=== PATIENT | female | born 1945 | race Caucasian/White ===

== ENCOUNTER 2024-04-24 11:01 | Inpatient (IN) ==
[2024-04-24] MEDS: Ondansetron 4 mg VIAL 2 MG/ML 2 ml VIAL IV ONE (12:09)
[2024-04-24] MEDS: Lactated Ringers 1000 ml BAG 1,000 ML IV ONE (12:10)
[2024-04-24 12:20] LABS: ABS Lymphocytes 1.6 10^3/uL (1.0-4.8); ABS Monocytes 0.4 10^3/uL (0.0-0.9); ABS Neutrophils 5.4 10^3/uL (1.5-7.6); ABS Nucleated RBC 0.01 10^3/ul; Eosinophil % 0.3 %; Hematocrit 44.2 % (35-45); Hemoglobin 15.3 g/dL (11.5-14.3); Lymphocyte % 21.7 %; Mean Corpuscular Hgb Conc 34.6 g/dL (31-36); Mean Corpuscular Volume 86.6 fL (80-97); Mean Platelet Volume 6.4 fL (7.5-11.2); Nucleated Red Blood Cells % 0.1 %/100WBC (0.0-0.8); Platelet Count 453 10^3/uL (150-450); Red Cell Distribution Width 13.2 % (12-17); White Blood Count 7.5 10^3/uL (3.8-11.8)
[2024-04-24 12:41] LABS: Albumin 4.3 g/dL (3.2-5.2); Albumin/Globulin Ratio 2.3 (1-3); Calcium 10.1 mg/dL (8.6-10.3); Creatinine, Serum 0.46 mg/dL (0.51-0.95); Globulin 1.9 g/dL (2-4); Magnesium 1.5 mg/dL (1.9-2.7); Total Protein 6.2 g/dL (6.4-8.9); eGFR CKD-EPI 98.5 (>60)
[2024-04-24 12:52] LABS: TSH Ultra Thyroid Stim Horm 2.57 mcIU/mL (0.34-5.60)
[2024-04-24 13:40] LABS: Osmolality Serum 231 mOsm/kg (275-295)
[2024-04-24 14:03] LABS: Urine Appearance Turbid; Urine Bilirubin Negative (Negative); Urine Blood Negative (Negative); Urine Color Light-Yellow; Urine Glucose Negative (Negative); Urine Ketones 1+ (Negative); Urine Nitrite Negative (Negative); Urine Protein Trace (Negative); Urine Specific Gravity 1.011 (1.002-1.030); Urine Urobilinogen Negative (Negative); Urine pH 7.5 (5.0-8.0)
[2024-04-24 14:12] LABS: Urine Osmo 396 mOsm/kg (150-1150)
[2024-04-24 14:17] LABS: Anion Gap 7 mmol/L (2-16); Blood Urea Nitrogen 13 mg/dL (6-24); CO2 Carbon Dioxide 24 mmol/L (22-32); Calcium 9.5 mg/dL (8.6-10.3); Chloride 77 mmol/L (101-111); Creatinine, Serum 0.46 mg/dL (0.51-0.95); Glucose 107 mg/dL (70-100); Sodium 108 mmol/L (135-145); eGFR CKD-EPI 98.5 (>60)
[2024-04-24] MEDS: Tetan/Diph/Pertus SYR(Tdap) 0.5 ML SYR(BOOSTRIX) use SYR contains LATEX IM ONE (14:35)
[2024-04-24] MEDS ORDERED: Ondansetron 4 mg VIAL 2 MG/ML 2 ml VIAL IV PRN (15:33)
[2024-04-24] MEDS: Magnesium Sulfate 2 gm BAG 2 GM/50 ML BAG IVPB ONE (17:51)
[2024-04-24] MEDS: Magnesium Sulfate IV 1GM/100ML 1 GM/100 ML BAG IV ONE (19:00)
[2024-04-24 19:45] LABS: Calcium 9.6 mg/dL (8.6-10.3); Creatinine, Serum 0.42 mg/dL (0.51-0.95); Potassium 3.8 mmol/L (3.5-5.0); eGFR CKD-EPI 100.7 (>60)
[2024-04-24] MEDS: Enoxaparin 40 MG/0.4 ML SYR SUBCUT SCH (20:11)
[2024-04-24] MEDS: Sodium Chloride 3% HYPERTONIC 150 ML IV ONE (20:16)
[2024-04-25 01:45] LABS: Anion Gap 6 mmol/L (2-16); Blood Urea Nitrogen 10 mg/dL (6-24); CO2 Carbon Dioxide 20 mmol/L (22-32); Calcium 9.2 mg/dL (8.6-10.3); Chloride 77 mmol/L (101-111); Glucose 95 mg/dL (70-100); Sodium 103 mmol/L (135-145); eGFR CKD-EPI 96.5 (>60)
[2024-04-25 06:35] LABS: ABS Lymphocytes 1.5 10^3/uL (1.0-4.8); ABS Monocytes 0.5 10^3/uL (0.0-0.9); ABS Neutrophils 4.6 10^3/uL (1.5-7.6); Eosinophil % 0.3 %; Hematocrit 43.2 % (35-45); Hemoglobin 15.7 g/dL (11.5-14.3); Lymphocyte % 22.7 %; Mean Corpuscular Hemoglobin 30.9 pg (27-33); Mean Corpuscular Hgb Conc 36.2 g/dL (31-36); Mean Corpuscular Volume 85.2 fL (80-97); Mean Platelet Volume 6.6 fL (7.5-11.2); Nucleated Red Blood Cells % 0.1 %/100WBC (0.0-0.8); Platelet Count 396 10^3/uL (150-450); Red Blood Count 5.08 10^6/uL (3.63-4.92); Red Cell Distribution Width 13.5 % (12-17); White Blood Count 6.6 10^3/uL (3.8-11.8)
[2024-04-25 07:22] LABS: Calcium 9.4 mg/dL (8.6-10.3); Creatinine, Serum 0.45 mg/dL (0.51-0.95); Magnesium 1.8 mg/dL (1.9-2.7); Phosphorus 2.7 mg/dL (2.5-5.0); Potassium 3.4 mmol/L (3.5-5.0)
[2024-04-25] MEDS: Magnesium Sulfate 2 gm BAG 2 GM/50 ML BAG IVPB ONE (08:12)
[2024-04-25] MEDS: KCL 20 MEQ/100 ML IVPREMIX 20 MEQ/100 ML BAG IV SCH (08:14)
[2024-04-25 09:11] LABS: Urine Appearance Clear; Urine Bilirubin Negative (Negative); Urine Blood Negative (Negative); Urine Color Light-Yellow; Urine Glucose Negative (Negative); Urine Ketones 2+ (Negative); Urine Nitrite Negative (Negative); Urine Protein Trace (Negative); Urine Specific Gravity 1.013 (1.002-1.030); Urine Urobilinogen Negative (Negative)
[2024-04-25 11:18] LABS: Calcium 9.4 mg/dL (8.6-10.3); Creatinine, Serum 0.43 mg/dL (0.51-0.95); Potassium 3.8 mmol/L (3.5-5.0); eGFR CKD-EPI 100.1 (>60)
[2024-04-25 15:28] LABS: Calcium 9.7 mg/dL (8.6-10.3); Creatinine, Serum 0.37 mg/dL (0.51-0.95); Potassium 4.1 mmol/L (3.5-5.0); eGFR CKD-EPI 103.8 (>60)
[2024-04-25 19:10] LABS: Calcium 9.8 mg/dL (8.6-10.3); Creatinine, Serum 0.39 mg/dL (0.51-0.95); Potassium 3.8 mmol/L (3.5-5.0); eGFR CKD-EPI 102.5 (>60)
[2024-04-25 23:30] LABS: Calcium 9.9 mg/dL (8.6-10.3); Creatinine, Serum 0.38 mg/dL (0.51-0.95); Potassium 3.8 mmol/L (3.5-5.0); eGFR CKD-EPI 103.1 (>60)
[2024-04-26 03:12] LABS: Creatinine, Serum 0.48 mg/dL (0.51-0.95); Potassium 3.9 mmol/L (3.5-5.0); eGFR CKD-EPI 97.5 (>60)
[2024-04-26 05:51] LABS: ABS Lymphocytes 3.1 10^3/uL (1.0-4.8); ABS Monocytes 0.7 10^3/uL (0.0-0.9); ABS Nucleated RBC 0.09 10^3/ul; Eosinophil % 0.4 %; Hematocrit 47.4 % (35-45); Hemoglobin 16.7 g/dL (11.5-14.3); Lymphocyte % 35.2 %; Mean Corpuscular Hemoglobin 30.1 pg (27-33); Mean Corpuscular Hgb Conc 35.2 g/dL (31-36); Mean Corpuscular Volume 85.3 fL (80-97); Mean Platelet Volume 6.4 fL (7.5-11.2); Platelet Count 429 10^3/uL (150-450); Red Blood Count 5.56 10^6/uL (3.63-4.92); Red Cell Distribution Width 13.3 % (12-17); White Blood Count 8.8 10^3/uL (3.8-11.8)
[2024-04-26 06:43] LABS: Calcium 10.3 mg/dL (8.6-10.3); Creatinine, Serum 0.53 mg/dL (0.51-0.95); Magnesium 1.8 mg/dL (1.9-2.7); eGFR CKD-EPI 95.2 (>60)
[2024-04-26 11:16] LABS: Calcium 10.4 mg/dL (8.6-10.3); Creatinine, Serum 0.45 mg/dL (0.51-0.95); Potassium 3.5 mmol/L (3.5-5.0)
[2024-04-26 15:49] LABS: Creatinine, Serum 0.6 mg/dL (0.51-0.95); Potassium 3.7 mmol/L (3.5-5.0); eGFR CKD-EPI 92.4 (>60)
[2024-04-26 18:49] LABS: Anion Gap 6 mmol/L (2-16); Blood Urea Nitrogen 26 mg/dL (6-24); CO2 Carbon Dioxide 25 mmol/L (22-32); Calcium 10.1 mg/dL (8.6-10.3); Chloride 83 mmol/L (101-111); Creatinine, Serum 0.69 mg/dL (0.51-0.95); Glucose 120 mg/dL (70-100); Sodium 114 mmol/L (135-145); eGFR CKD-EPI 89.3 (>60)
[2024-04-27 02:51] LABS: Calcium 9.9 mg/dL (8.6-10.3); Creatinine, Serum 0.67 mg/dL (0.51-0.95); Potassium 4.2 mmol/L (3.5-5.0)
[2024-04-27 06:20] LABS: ABS Basophils 0.1 10^3/uL (0.0-0.1); ABS Lymphocytes 2.2 10^3/uL (1.0-4.8); ABS Monocytes 0.8 10^3/uL (0.0-0.9); ABS Neutrophils 4.5 10^3/uL (1.5-7.6); ABS Nucleated RBC 0.01 10^3/ul; Eosinophil % 0.5 %; Hematocrit 41.6 % (35-45); Hemoglobin 14.7 g/dL (11.5-14.3); Lymphocyte % 29.6 %; Mean Corpuscular Hemoglobin 30.2 pg (27-33); Mean Corpuscular Hgb Conc 35.4 g/dL (31-36); Mean Corpuscular Volume 85.5 fL (80-97); Mean Platelet Volume 6.6 fL (7.5-11.2); Nucleated Red Blood Cells % 0.2 %/100WBC (0.0-0.8); Platelet Count 361 10^3/uL (150-450); Red Blood Count 4.87 10^6/uL (3.63-4.92); Red Cell Distribution Width 13.6 % (12-17); White Blood Count 7.6 10^3/uL (3.8-11.8)
[2024-04-27 07:39] LABS: Calcium 9.7 mg/dL (8.6-10.3); Creatinine, Serum 0.54 mg/dL (0.51-0.95); Magnesium 1.7 mg/dL (1.9-2.7); Potassium 4.1 mmol/L (3.5-5.0); eGFR CKD-EPI 94.8 (>60)
[2024-04-27 11:21] LABS: Urine Osmo 561 mOsm/kg (150-1150)
[2024-04-27 11:23] LABS: Calcium 9.8 mg/dL (8.6-10.3); Creatinine, Serum 0.69 mg/dL (0.51-0.95); Potassium 4.1 mmol/L (3.5-5.0); eGFR CKD-EPI 89.3 (>60)
[2024-04-27] MEDS: Magnesium Sulfate 2 gm BAG 2 GM/50 ML BAG IVPB ONE (12:02)
[2024-04-27 12:08] LABS: Osmolality Serum 264 mOsm/kg (275-295)
[2024-04-27] MEDS: Carboxymethylcellulose/Glyceri 10 ML OPHTH.GEL lubricant eye gel BOTH EYES PRN (12:53)
[2024-04-27] MEDS: Magnesium Sulfate IV 1GM/100ML 1 GM/100 ML BAG IV ONE (13:50)
[2024-04-27] MEDS: Senna TAB 8.6 mg TAB PO PRN (14:34)
[2024-04-27 16:00] LABS: Calcium 9.7 mg/dL (8.6-10.3); Creatinine, Serum 0.74 mg/dL (0.51-0.95); eGFR CKD-EPI 83.3 (>60)
[2024-04-27] MEDS: Benzocaine/Menthol LOZ PO PRN (17:47)
[2024-04-27 18:42] LABS: Calcium 9.5 mg/dL (8.6-10.3); Creatinine, Serum 0.62 mg/dL (0.51-0.95); Potassium 4.2 mmol/L (3.5-5.0); eGFR CKD-EPI 91.7 (>60)
[2024-04-27] MEDS ORDERED: Carboxymethylcellulose/Glyceri 10 ML OPHTH.GEL lubricant eye gel BOTH EYES SCH (21:00)
[2024-04-28 01:07] LABS: Calcium 9.8 mg/dL (8.6-10.3); Creatinine, Serum 0.51 mg/dL (0.51-0.95); Potassium 4.5 mmol/L (3.5-5.0); eGFR CKD-EPI 96.1 (>60)
[2024-04-28 05:48] LABS: ABS Eosinophils 0.1 10^3/uL (0.0-0.5); ABS Lymphocytes 1.8 10^3/uL (1.0-4.8); ABS Monocytes 0.7 10^3/uL (0.0-0.9); ABS Neutrophils 3.6 10^3/uL (1.5-7.6); Eosinophil % 1.2 %; Hematocrit 40.2 % (35-45); Hemoglobin 14.1 g/dL (11.5-14.3); Lymphocyte % 28.9 %; Mean Corpuscular Hemoglobin 30.5 pg (27-33); Mean Corpuscular Hgb Conc 35.2 g/dL (31-36); Mean Corpuscular Volume 86.6 fL (80-97); Mean Platelet Volume 6.7 fL (7.5-11.2); Nucleated Red Blood Cells % 0.1 %/100WBC (0.0-0.8); Platelet Count 338 10^3/uL (150-450); Red Blood Count 4.64 10^6/uL (3.63-4.92); Red Cell Distribution Width 13.6 % (12-17); White Blood Count 6.2 10^3/uL (3.8-11.8)
[2024-04-28 06:28] LABS: Calcium 9.6 mg/dL (8.6-10.3); Creatinine, Serum 0.51 mg/dL (0.51-0.95); Potassium 4.3 mmol/L (3.5-5.0); eGFR CKD-EPI 96.1 (>60)
[2024-04-29 05:20] LABS: ABS Basophils 0.1 10^3/uL (0.0-0.1); ABS Eosinophils 0.1 10^3/uL (0.0-0.5); ABS Lymphocytes 2.7 10^3/uL (1.0-4.8); ABS Monocytes 0.6 10^3/uL (0.0-0.9); ABS Neutrophils 4.2 10^3/uL (1.5-7.6); Eosinophil % 1.6 %; Hematocrit 41.4 % (35-45); Hemoglobin 14.2 g/dL (11.5-14.3); Lymphocyte % 34.8 %; Mean Corpuscular Hemoglobin 30.3 pg (27-33); Mean Corpuscular Hgb Conc 34.2 g/dL (31-36); Mean Corpuscular Volume 88.5 fL (80-97); Mean Platelet Volume 7.1 fL (7.5-11.2); Platelet Count 359 10^3/uL (150-450); Red Blood Count 4.67 10^6/uL (3.63-4.92); Red Cell Distribution Width 13.7 % (12-17); White Blood Count 7.7 10^3/uL (3.8-11.8)
[2024-04-29 05:37] LABS: Calcium 10.3 mg/dL (8.6-10.3); Creatinine, Serum 0.57 mg/dL (0.51-0.95); eGFR CKD-EPI 93.5 (>60)
[2024-04-30 06:14] VITALS: BP 144/71
[2024-04-30 08:32] LABS: Calcium 10.5 mg/dL (8.6-10.3); Creatinine, Serum 0.54 mg/dL (0.51-0.95); Potassium 4.9 mmol/L (3.5-5.0); eGFR CKD-EPI 94.8 (>60)
[2024-04-30] MEDS: Lactulose 30 ml UDC PO ONE (12:44)
== END 2024-04-30 15:15 | DRG 644 ==
LOC: ED 11:01 → EDHOLD 13:12 → ICU 14:40 → MEDTELE 04-29 11:10
PROVIDERS: ADMIT Student in an Organized Health Care Education/Training Program; ATTEND Internal Medicine